=== PATIENT | male | born 1995 | race Caucasian/White ===

== ENCOUNTER 2018-03-13 16:25 | Emergency (ER) | payer MEDICARE, OTHER ==
--- NOTE | 2018-03-13 16:30 | ED Physician Documentation ---
Foot Injury - PAST HX Allergies/Adverse Reactions: Allergies Allergy/AdvReac Type Severity Reaction Status Date / Time No Known Allergies Allergy Verified 05/03/14 15:03 Home Medications: Ambulatory Orders Medication Instructions Recorded NK 09/26/12 - VITAL SIGNS Vital Signs: Vital Signs Temp Pulse Resp BP Pulse Ox 107/68 05/03/14 15:58 Discharge Referrals: David Chilel [Primary Care Provider] - 2 Days
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
[2018-03-13 17:42] VITALS: BP 133/87
[2018-03-13 20:02] LABS: BASO % 0.5 % (0.0-1.5); EOS % 5.1 % (0.0-6.8); LYMPH ABS # 2.36 thou/uL (0.60-4.00); MCH. 30.7 pg (28.0-34.0); MCV 89.3 fL (80.0-100.0); MONOCYTE % 6.4 % (0.0-11.0); MONOCYTE ABS # 0.62 thou/uL (0.00-0.90); PLATELET COUNT 216 thou/uL (130-400)
[2018-03-14 03:37] LABS: APPEARANCE,URINE CLEAR (CLEAR); COLOR,URINE YELLOW (YELLOW); OCCULT BLOOD,URINE NEGATIVE (NEGATIVE); PH URINE 6.5 (5.0 - 8.0); UROBILINOGEN URINE 0.2 Eu (0.2-1.0)
[2018-03-14 04:28] LABS: CANNABINOIDS NEGATIVE ng/mL (< 50); METHYLENEDIOXYMETHAMPHETAMINE NEGATIVE ng/mL (<500)
== END 2018-03-13 18:00 | disposition home or self-care (01) ==
LOC: ED 16:25
DX: F91.9 Conduct disorder, unspecified (principal); F20.9 Schizophrenia, unspecified
CPT/HCPCS: 80053; 80377; 81002; 85025; 99283; G0481

== ENCOUNTER 2018-06-27 16:08 | Emergency (ER) | payer MEDICARE, OTHER ==
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
[2018-06-27 17:55] VITALS: BP 107/69
== END 2018-06-27 17:55 | disposition home or self-care (01) ==
LOC: ED 16:08
DX: S09.90XA Unspecified injury of head, initial encounter (principal); W01.198A Fall on same level from slipping, tripping and stumbling with subsequent striking against other object, initial encounter; Y93.9 Activity, unspecified; Y92.9 Unspecified place or not applicable
CPT/HCPCS: 70450; 99283; 99284